=== PATIENT | male | born 1990 | race Caucasian/White ===

== ENCOUNTER 2025-05-01 19:22 | Emergency (ER) | payer SELFPAY ==
[2025-05-01 19:33] VITALS: BP 138/99; PULSE 71; RESP 16; TEMP 36.6; O2SAT 99; BMI 42.7
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
--- OUTSIDE RECORDS SUMMARY | 2025-05-01 20:00 | XMS_ITS | Clinical Summary ---
Author Organization [facility] Address [address] [place] [address] Care Team Providers Care Liability Claims Representative Name Role Phone Provider, No Known Primary Care Provider Unavail able Allergies Active Allergy Reactions Criticality Noted Date Comments Shellfish-Derived Products Anaphylaxis High 11/12/19 17 Medications HYDROcodone-amy taminophen (NORCO) 5-325 MG per tabletIndicatio ns:Kidney stone Take 1 tablet by mouth Every 4 (Four) Hours As Needed for Moderate Pain. 10 tablet 12/24/2023 Active tamsulosin (FLOMAX) 0.4 MG capsule 24 hr capsule Take 1 capsule by mouth Daily. 30 capsule 12/24/2023 Active Active Problems Problem Noted Date Diagnosed Date Nephrolithiasis 12/23/2023 Kidney stone 06/16/2021 Kidney stone on left side 01/22/2021 UTI (urinary tract infection) 01/22/2021 Left flank pain 11/27/2016 Resolved Problems Problem Noted Date Diagnosed Date Resolved Date Elevated serum creatinine 01/22/2021 Kidney stone 11/11/2016 11/29/2016 Social History Tobacco Use Types Packs/Day Years Used Date Smoking Tobacco: Never Smokeless Tobacco: Former Tobacco Cessation:Counseling Given: No Alcohol Use Standard Drinks/Week Comments Yes 3 (1 standard drink = 0.6 oz pur e alcohol) pt drinks once a week [facility] Utilities Answer Date Recorded In the past 12 months has [employer] e electric, gas, oil, or water company threatened to shut off services in your home? No 12/24/2023 AUDIT-C Answer Date Recorded Q1: How often do you have a drink containing alc ohol? 2-3 times a week 12/23/2023 Q2: How many drinks containi ng alcohol do you have on a typical day when you are drinking? 1 or 2 12/23/2023 Q3: How often do you have si x or more drinks on one occasion? Never 12/23/2023 Overall Financial Resource Strain (CARDIA) Answe r Date Recorded How hard is it for you to pa y for the very basics like food, housing, medical care, and heating? Not very hard 12/24/2023 [facility] - Occupational Stress Questionnaire Answer Date Recorded Do you feel stress - tense, restless, nervous, or anxious, or unable to sleep at night because your mind is troubled all the time - these days? Not at all 12/24/2023 Exercise Vital Sign Answer Date Recorde d On average, how many days pe r week do you engage in moderate to strenuous exercise (like a brisk walk)? 5 days 12/24/2023 On average, how many minutes do you engage in exercise at this level? 90 min 12/24/2023 Hunger Vital Sign Answer Date Recorded Within the past 12 months, y ou worried that your food would run out before you got the money to buy more. Never true 12/24/19 24 Within the past 12 months, t he food you bought just didn't last and you didn't have money to get more. Never true 12/24/2023 PRAPARE - Transportation Answer Date Re corded In the past 12 months, has l ack of transportation kept you from medical appointments or from getting medications? No 12/14 In the past 12 months, has l ack of transportation kept you from meetings, work, or from getting things needed for daily living? No 12/24/2023 Abuse Screen Answer Date Recorded Feels Unsafe at Home or Work/School no 12/23/2023 Feels Threatened by Someone no 04/2024 Does Anyone Try to Keep You From Having Contact with Others or Doing Things Outside Your Home? no 12/23/2023 Physical Signs of Abuse Present no 12/23/2023 Housing Stability Answer Date Recorded Current Living Arrangements home 12/14 Potentially Unsafe Housing Conditions none 12/24/2023 Family and Community Support Answer Gerard e Recorded If for any reason you need h elp with day-to-day activities such as bathing, preparing meals, shopping, managing finances, etc., do you get the help you need? I get all the help I need 12/24/2023 How often do you feel lonely or isolated from those around you? Never 12/24/2023 Employment Answer Date Recorded Do you want help finding or keeping work or a lianna b? Patient declined 12/24/2023 Disabilities Answer Date Recorded Difficulty Concentrating, Remembering or Making Decisions no 12/24/2023 Difficulty Managing Errands Independently no 12/24/2023 Education Answer Date Recorded Do you want help with school or training? For example, starting or completing job training or getting a high school diploma, GED or equivalent Patient declined 12/24/2023 Preferred Language Northern Irish 12/24/2023 PHQ-2 Answer Date Recorded Retired PHQ-9: Brief Depression Severity Measure Score 0 12/24/2023 Sex and Gender Information Value Date Recorded Sex Assigned at Not on file Legal Sex Male 1:02 PM EDT Gender Identity Not on file Sexual Orientation Not on file Last Filed Vital Signs Vital Sign Reading Time Taken Comments Blood Pressure 129/71 12/24/2023 7:16 AM EDT Pulse 75 12/24/2023 9:00 AM EDT Temperature 36.6 C (97.8 F) 12/24/2023 7:16 AM EDT Respiratory Rate 18 12/24/2023 7:16 AM EDT Oxygen Saturation 97% 12/24/2023 9:00 AM EDT Inhaled Oxygen Concentration - - Weight 145 kg (319 lb 10.7 oz) 12/23/2023 6:07 P M EDT Height 182.9 cm (6') 12/23/2023 6:07 PM EDT Body Mass Index 43.35 12/23/2023 6:07 PM EDT Plan of Treatment Health Maintenance Due Date Last Done Comments TDAP/TD VACCINES (1 - Tdap) 2011 ANNUAL PHYSICAL 11/11/2016 HEPATITIS C SCREENING 11/11/2016 COVID-19 Vaccine (2023-2 5 season) 2025 INFLUENZA VACCINE 05/16/2025 Pneumococcal Vaccine 0-49 Aged Out No longer eligible based on patient's age to complete this topic Medical Devices Implanted Type Area Surg Physician Asst Device Identifier Shelf Expiration Date Model / Serial / Lot Stent Percuflx No 4.8x26 - Sna - [id number] Implanted:Qty : 1 on 11/11/2016 by Shay Spain MD at [facility] Implant Left: Ureter [employer] 04/28/2019 [id number] 0 / NA / [id number] Stent Percuflx No 6x26 - Sna - [id number] Implanted:Qty : 1 on 11/25/2016 by Shay Spain MD at [facility] Implant Left: Ureter [employer] 07/07/2019 [id number] 0 / NA / [id number] Stnt Percuflx No 6x26 - [id number] Implanted:Qty : 1 on 01/23/2021 by Bart Thibodeaux Jr., MD at [facility] Stent Left: Ureter [employer] 11/06/2023 [id number] / / [id number] Advance Directives * CPR (Attempt to Resuscitate) (Latest Code Status on File) Date Activated Date Inactivated Comments 01/22/2021 11:22 PM 01/24/2021 1:13 PM Question Answer Comments Code Status (Patient has no pulse and is not breathing): CPR (Attempt to Resuscitate) Medical Interventions (Patie nt has pulse or is breathing): Full Level Of Support Discussed With: Patient * Full Code Date Activated Date Inactivated Comments 11/28/2016 7:29 AM 11/29/2016 2:45 PM * Full Code Date Activated Date Inactivated Comments 11/11/2016 7:37 AM 11/11/2016 9:09 PM Care Teams Liability Claims Representative Relationship Specialty Start Date End Date Provider, [place] [address] PCP - General 11/08/16
[2025-05-01] MEDS: ACETAMINOPHEN 500MG TAB 500 MG PO (20:21)
[2025-05-01] MEDS: IBUPROFEN 600 MG TABLET PO (20:22)
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
[2025-05-01 22:37] VITALS: BP 142/84; PULSE 74; RESP 20; TEMP 36.8; O2SAT 97
== END 2025-05-01 22:39 | disposition home or self-care (01) ==
PROVIDERS: Emergency Provider Student in an Organized Health Care Education/Training Program
DX: M54.2 Cervicalgia (principal); M54.6 Pain in thoracic spine; R51.9 Headache, unspecified; M25.511 Pain in right shoulder; M25.512 Pain in left shoulder; V49.40XA Driver injured in collision with unspecified motor vehicles in traffic accident, initial encounter
CPT/HCPCS: 70450; 71045; 72125; 73030; 99284; 99285